=== PATIENT | female | born 1965 | race American Indian/Alaskan Native ===

== ENCOUNTER 2022-02-17 22:06 | Emergency (ER) | payer SELFPAY ==
[2022-02-17 22:51] VITALS: BP 145/88
== END 2022-02-17 23:00 | disposition left against medical advice (07) ==
LOC: ED 22:06
DX: Z00.00 Encounter for general adult medical examination without abnormal findings (principal); Z53.21 Procedure and treatment not carried out due to patient leaving prior to being seen by health care provider